=== PATIENT | female | born 1945 | race Caucasian/White ===

== ENCOUNTER → 2016-10-25 | Outpatient (CLI) | payer MEDICARE ==
--- NOTE | 2016-10-27 10:57 | MM ---
Reason for exam: screening (asymptomatic). Last mammogram was performed 1 year ago. History: Patient is postmenopausal. Took estrogen for 5 years beginning at age 44. Took progesterone for 5 years beginning at age 44. Physical Findings: A clinical breast exam by your physician is recommended on an annual basis and results should be correlated with mammographic findings. MG 3D Screening Mammo W/Cad Bilateral CC and MLO view(s) were taken. Prior study comparison: October 21, 2015, bilateral MG screening mammo w CAD. There are scattered fibroglandular densities. No significant changes when compared with prior studies. ASSESSMENT: Benign, BI-RAD 2 RECOMMENDATION: Routine screening mammogram of both breasts in 1 year.
== END | disposition home or self-care (01) ==
LOC: RADMAMWWP 09:21
PROVIDERS: ATTEND Family Medicine
DX: Z12.31 Encounter for screening mammogram for malignant neoplasm of breast (principal); N95.9 Unspecified menopausal and perimenopausal disorder
CPT/HCPCS: 77063; G0202

== ENCOUNTER → 2016-11-02 | Outpatient (CLI) | payer MEDICARE ==
--- NOTE | 2016-11-02 08:49 | US ---
EXAMINATION TYPE: US duplex aorta DATE OF EXAM: 11/02/2016 COMPARISON: CT CLINICAL HISTORY: I71.4 Abd Aneurysm Without Mention Of Rupture. Pt states Mother with history of AAA , pt currently has no symptoms or complaints EXAM MEASUREMENTS: Abdominal Aorta: Proximal: 2.7 x 2.7 cm Mid: 1.9 x 1.9 cm Distal: 2.0 x 1.9 cm Bifurcation: BRENDAN: 1.3 x 1.3 cm ERNESTINE: 1.3 x 0.9 cm No evidence of AAA IMPRESSION: Atheromatous changes. No evidence for aneurysm at this time.
== END | disposition home or self-care (01) ==
LOC: RADUSWWP 08:06
PROVIDERS: ATTEND Family Medicine
DX: I71.4 Abdominal aortic aneurysm, without rupture (principal)
CPT/HCPCS: 93979

== ENCOUNTER → 2017-10-30 | Outpatient (CLI) | payer MEDICARE ==
--- NOTE | 2017-10-31 00:13 | MR ---
EXAMINATION TYPE: MR brain wo con DATE OF EXAM: 10/30/2017 COMPARISON: NONE HISTORY: Rt sided weakness, memory loss Standard multiplanar, multisequence MRI departmental protocol Multiplanar, multisequence images of the brain were acquired. Diffusion weighted imaging was performe d. FINDINGS: There is mild cerebral cortical atrophy. There is no mass effect nor midline shift. There i s no sign of intracranial hemorrhage. Brainstem is intact. Sella turcica appears normal. Corpus callo sum appears normal. IMPRESSION: Mild cerebral atrophy. Otherwise negative MR scan of the brain.
== END | disposition home or self-care (01) ==
LOC: RADMRIMAIN 16:50
PROVIDERS: ATTEND Family Medicine
DX: G31.9 Degenerative disease of nervous system, unspecified (principal)
CPT/HCPCS: 70551

== ENCOUNTER → 2017-11-22 | Outpatient (CLI) | payer MEDICARE ==
--- NOTE | 2017-11-30 09:38 | MM ---
Reason for exam: screening (asymptomatic). Last mammogram was performed 1 year and 1 month ago. History: Patient is postmenopausal. Took estrogen for 5 years beginning at age 44. Took progesterone for 5 years beginning at age 44. Physical Findings: A clinical breast exam by your physician is recommended on an annual basis and results should be correlated with mammographic findings. MG 3D Screening Mammo W/Cad Bilateral CC and MLO view(s) were taken. Prior study comparison: October 25, 2016, bilateral MG 3d screening mammo w/cad. October 21, 2015, bilateral MG screening mammo w CAD. There are scattered fibroglandular densities. Benign appearing bilateral calcifications. No suspicious abnormality. No significant changes when compared with prior studies. ASSESSMENT: Benign, BI-RAD 2 RECOMMENDATION: Routine screening mammogram of both breasts in 1 year.
== END | disposition home or self-care (01) ==
LOC: RADMAMWWP 11:47
PROVIDERS: ATTEND Family Medicine
DX: Z12.31 Encounter for screening mammogram for malignant neoplasm of breast (principal)
CPT/HCPCS: 77063; 77067

== ENCOUNTER → 2018-03-12 | Outpatient (CLI) | payer MEDICARE ==
--- NOTE | 2018-03-12 16:30 | US ---
EXAMINATION TYPE: US bladder DATE OF EXAM: 03/12/2018 COMPARISON: NONE CLINICAL HISTORY: 72-year-old female R35.0 FREQUENCY OF URINATION. UTI TECHNIQUE: Multiple sonographic images of the bladder are obtained. FINDINGS: EXAM MEASUREMENTS: Post Void Residual Volume: 187.6 mL Color Doppler performed to assess ureteral jets. Bilateral Jets seen: Yes Normal Post Void Residual (less than 50ml): No IMPRESSION: Postvoid bladder volume of nearly 190 mL which is compatible with urinary retention.
== END | disposition home or self-care (01) ==
LOC: RADUSWWP 11:31
PROVIDERS: ATTEND Family Medicine
DX: R33.9 Retention of urine, unspecified (principal)
CPT/HCPCS: 76857

== ENCOUNTER → 2018-05-04 | Outpatient (CLI) | payer MEDICARE ==
--- NOTE | 2018-05-04 10:41 | US ---
EXAMINATION TYPE: US kidneys/renal and bladder DATE OF EXAM: 05/04/2018 COMPARISON: Urinary bladder ultrasound dated 03/12/2018 CLINICAL HISTORY: N39.0 Urinary Tract Infection. Frequent urination, recurrent UTI EXAM MEASUREMENTS: Right Kidney: 10.2 x 4.8 x 5.2 cm Left Kidney: 9.8 x 4.9 x 4.2 cm Post Void Residual Volume: 230 mL Right Kidney: no evidence of hydronephrosis Left Kidney: no evidence of hydronephrosis Bladder: appears wnl Bilateral Jets seen: yes Normal Post Void Residual: no There is no evidence for hydronephrosis at this point in time. No nephrolithiasis is seen. No donell s are identified. The urinary bladder is anechoic. Bilateral ureteral jets are seen. IMPRESSION: Redemonstration of an abnormal post void residual (large volume) of 230 mL. Consideration for neuroge ana bladder should be given. No gross evidence of obstruction. No subsequent hydronephrosis to indica te vesiculoureteral reflux.
== END | disposition home or self-care (01) ==
LOC: RADUSWWP 09:56
PROVIDERS: ATTEND Urology
DX: N39.0 Urinary tract infection, site not specified (principal)
CPT/HCPCS: 76770

== ENCOUNTER → 2019-03-26 | Outpatient (CLI) | payer MEDICARE ==
--- NOTE | 2019-03-29 10:56 | MM ---
Reason for exam: screening (asymptomatic). Last mammogram was performed 1 year and 4 months ago. History: Patient is postmenopausal. Took estrogen for 5 years beginning at age 44. Took progesterone for 5 years beginning at age 44. Physical Findings: A clinical breast exam by your physician is recommended on an annual basis and results should be correlated with mammographic findings. MG 3D Screening Mammo W/Cad Bilateral CC and MLO view(s) were taken. Prior study comparison: November 22, 2017, bilateral MG 3d screening mammo w/cad. October 25, 2016, bilateral MG 3d screening mammo w/cad. There are scattered fibroglandular densities. No significant changes when compared with prior studies. ASSESSMENT: Benign, BI-RAD 2 RECOMMENDATION: Routine screening mammogram of both breasts in 1 year.
== END ==
LOC: RADMAMWWP 16:25
PROVIDERS: ATTEND Family Medicine
DX: Z12.31 Encounter for screening mammogram for malignant neoplasm of breast (principal)
CPT/HCPCS: 77063; 77067

== ENCOUNTER → 2021-02-05 | Outpatient (CLI) | payer MEDICARE ==
--- NOTE | 2021-02-08 11:13 | MM ---
Reason for exam: screening (asymptomatic). Last mammogram was performed 1 year and 10 months ago. History: Patient is postmenopausal. Took estrogen for 5 years beginning at age 44. Took progesterone for 5 years beginning at age 44. Physical Findings: A clinical breast exam by your physician is recommended on an annual basis and results should be correlated with mammographic findings. MG 3D Screening Mammo W/Cad Bilateral CC and MLO view(s) were taken. Prior study comparison: March 26, 2019, bilateral MG 3d screening mammo w/cad. November 22, 2017, bilateral MG 3d screening mammo w/cad. There are scattered fibroglandular densities. There are benign appearing round calcifications bilaterally. There is no discrete abnormality. ASSESSMENT: Benign, BI-RAD 2 RECOMMENDATION: Routine screening mammogram of both breasts in 1 year.
== END | disposition home or self-care (01) ==
LOC: RADMAMWWP 09:24
PROVIDERS: ATTEND Family Medicine
DX: Z12.31 Encounter for screening mammogram for malignant neoplasm of breast (principal)
CPT/HCPCS: 77063; 77067

== ENCOUNTER → 2022-08-12 | Outpatient (CLI) | payer MEDICARE ==
--- NOTE | 2022-08-12 14:09 | US ---
EXAMINATION TYPE: US kidneys/renal and bladder DATE OF EXAM: 08/12/2022 COMPARISON: Ultrasound 05/04/2018 CLINICAL HISTORY: R339 RETENTION OF URINE. patient never feels like she voids completely EXAM MEASUREMENTS: Right Kidney: 10.0 x 4.7 x 5.3cm Left Kidney: 9.7 x 3.4 x 5.2cm Post Void Residual Volume: 306 mL Right Kidney: No hydronephrosis or masses seen Left Kidney: No hydronephrosis or masses seen Bladder: probable small diverticulum seen Normal Post Void Residual: no There is no evidence for hydronephrosis at this point in time. No nephrolithiasis is seen. No donell s are identified. Cortical medullary differentiation is maintained. The urinary bladder is anechoic. Significant postvoid residual. Small urinary bladder diverticulum demonstrated. IMPRESSION: 1. Significant postvoid residual of 306 mL consistent with urinary retention. Consideration for neur ogenic bladder should be given. No hydronephrosis to indicate vesicoureteral reflux. 2. Small urinary bladder diverticulum.
== END | disposition home or self-care (01) ==
LOC: RADUSWWP 13:11
PROVIDERS: ATTEND Family Medicine
DX: N32.3 Diverticulum of bladder (principal); R39.198 Other difficulties with micturition; R33.9 Retention of urine, unspecified
CPT/HCPCS: 76770

== ENCOUNTER → 2023-04-10 | Outpatient (CLI) | payer MEDICARE ==
[2023-04-10 09:29] LABS: Appearance,Urine Cloudy (Clear); Bacteria,Urine Rare /hpf; Bilirubin,Urine Negative (Negative); Blood,Urine Negative (Negative); Color,Urine Light Yellow; Glucose,Urine (UA) Negative (Negative); Ketones,Urine Negative (Negative); Leukocyte Esterase,Urine Large (Negative); Mucus,Urine Rare /hpf; Nitrite,Urine Negative (Negative); Protein,Urine Negative (Negative); RBC,Urine 1 /hpf (0-5); Specific Gravity,Urine 1.024 (1.001-1.035); Squamous Epithelial Cell,Urine 15 /hpf (0-4); Urobilinogen,Urine <2.0 mg/dL (<2.0); WBC,Urine 8 /hpf (0-5)
[2023-04-10 15:40] LABS: Basophils # (A) 0.04 X 10*3/uL (0.00-0.10); Basophils % (A) 0.6 %; Eosinophils # (A) 0.06 X 10*3/uL (0.04-0.35); Eosinophils % (A) 0.9 %; HCT 43.9 % (37.2-46.3); Lymphocytes # (A) 1.62 X 10*3/uL (0.90-5.00); Lymphocytes % (A) 25.4 %; MCHC 31.9 g/dL (32.0-37.0); MCV 90.9 FL (80.0-97.0); Mean Platelet Volume 9.4 FL (9.5-12.2); Monocytes # (A) 0.49 X 10*3/uL (0.20-1.00); Monocytes % (A) 7.7 %; NRBC Per 100 WBC 0 X 10*3/uL (0.00-0.01); Neutrophils # (A) 4.14 X 10*3/uL (1.80-7.70); Neutrophils % (A) 65.1 %; Platelet Count 237 X 10*3/uL (140-440); RBC 4.83 X 10*6/uL (4.10-5.20); RDW 14.5 % (11.5-14.5); WBC 6.37 X 10*3/uL (4.50-10.00)
[2023-04-10 15:53] LABS: INR 1.01 sec (0.93-1.11); Prothrombin Time 10.9 sec (9.9-11.9)
[2023-04-11 01:16] LABS: ALT 22 U/L (8-44); AST 28 U/L (13-35); Albumin 4.3 g/dL (3.8-4.9); Albumin/Globulin Ratio 2.15 Ratio (1.60-3.17); Alkaline Phosphatase 75 U/L (41-126); BUN/Creat Ratio 27.62 Ratio (12.00-20.00); Blood Urea Nitrogen 22.1 mg/dL (9.0-27.0); Calcium 9.1 mg/dL (8.7-10.3); Carbon Dioxide 25.5 mmol/L (21.6-31.8); Chloride 105 mmol/L (96-109); Glucose 77 mg/dL (70-110); Potassium 4.8 mmol/L (3.5-5.5); Sodium 141 mmol/L (135-145); Total Bilirubin 0.7 mg/dL (0.3-1.2); Total Protein 6.3 g/dL (6.2-8.2)
== END | disposition home or self-care (01) ==
LOC: LABPAT 08:16
PROVIDERS: ATTEND Obstetrics & Gynecology
DX: Z01.812 Encounter for preprocedural laboratory examination (principal); N81.11 Cystocele, midline
CPT/HCPCS: 80053; 81001; 85025; 85610; 86850; 86900; 86901; 87086

== ENCOUNTER 2023-04-19 05:40 | Day surgery (SDC) | payer MEDICARE ==
--- NOTE | 2023-04-17 23:19 | HP ---
HISTORY AND PHYSICAL DATE OF SURGERY: April 19, 2023. HISTORY OF PRESENT ILLNESS: The patient is a 77-year-old, 3, para 3-0-03, who was sent on referral from Dr. Smith regarding evaluation for pelvic organ prolapse. The patient specifically complains of significant vaginal bulging and pressure with an inability to void completely and occasionally even to start the flow of urination. She was seen for the same in 2018, at which time, she had vaginal hysterectomy with anterior repair scheduled, but was canceled secondary to social circumstances with her . She feels that those symptoms have not only persisted, but have actually increased over the last several years and is now interested in such scheduling surgery again. PAST MEDICAL HISTORY: Significant for history of back problems, headaches, hyperlipidemia, osteoporosis, phlebitis, and shoulder injury. PAST SURGICAL HISTORY: Significant for appendectomy and tonsillectomy. She otherwise has only had a colonoscopy. There is reportedly no history of issues with anesthesia. OBSTETRICAL HISTORY: 3, para 3-0-0-3 with 3 term vaginal deliveries without complications. GYNECOLOGIC HISTORY: Unremarkable with no history of any infections. It is otherwise current confined to as noted in history of present illness with issues regarding prolapse. FAMILY HISTORY: Noncontributory. SOCIAL HISTORY: The patient is and retired. She is a nonsmoker and reports minimal alcohol. She denies any other social concerns. CURRENT MEDICATIONS: Include: 1. Alendronate 70 mg weekly. 2. Aspirin 81 mg daily. 3. Calcium 500 mg plus vitamin D daily. 4. Glucosamine chondroitin daily. 5. Meloxicam 7.5 mg daily. 6. MiraLAX daily. 7. Multivitamin daily. 8. Aurora-3 fatty acids daily. 9. Terbinafine 250 mg daily. ALLERGIES: No known drug allergies. REVIEW OF SYSTEMS: Confined to history of present illness. PHYSICAL EXAMINATION: VITAL SIGNS: Stable. The patient is afebrile. GENERAL: This is a well-developed, well-nourished white female, in no acute distress. HEART: Regular rhythm and rate without murmur. LUNGS: Clear to auscultation bilaterally in all fry. ABDOMEN: Nondistended, has normoactive bowel sounds, soft, nontender, without any palpable masses, hepatosplenomegaly, or hernias. EXTREMITIES: Without any cyanosis, clubbing, or edema and are nontender to palpation bilaterally. PELVIC: Examination demonstrates normal external genitalia and BUS with normal vaginal mucosa and cervix. There is a grade 3 uterine prolapse with a grade 4 cystocele present. The rectum appears to be well supported. ASSESSMENT AND PLAN: Symptomatic uterine prolapse with symptomatic cystocele: We have discussed options for treatment and she has again opted to proceed to surgical repair. We therefore will plan a vaginal hysterectomy with anterior colporrhaphy, possible posterior colporrhaphy. The risks and complications of the procedures have been thoroughly discussed including risk for bleeding, bleeding requiring transfusion, infection, and injury to local structures to specifically include the bowel, bladder, and ureters. We discussed the typical hospital and postoperative courses as well. She has understood all of this and agreed to proceed. The plan was pretreated with Estrace cream 0.5 g intravaginally at bedtime for 2 weeks prior to surgery to aid in the healing process. She currently has some degree of urinary retention, but this is thought to be related to the degree of prolapse. Should that still be present afterwards, further exploration for a neurogenic component could be undertaken with Dr. Smith in the future. MMODL / IJN: [id number] /
[2023-04-19] MEDS ORDERED: HYDROmorphone 0.5 MG/0.5 ML SYRINGE IVP PRN (06:11)
[2023-04-19] MEDS ORDERED: LIDOCAINE 1% (10MG/ML) FOR IV START INTRADERMA PRN (06:11)
[2023-04-19] MEDS ORDERED: DEXAMETHASONE SOD PHOSPHATE 4 MG/ML 1 ML VIAL IV ONE (06:11)
[2023-04-19] MEDS ORDERED: MIDAZOLAM 2 MG/2 ML VIAL IV PRN (06:11)
[2023-04-19] MEDS ORDERED: ONDANSETRON 4 MG/2 ML VIAL IVP ONE (06:11)
[2023-04-19] MEDS: LACTATED RINGERS 1,000 ML IV SCH ×3 (07:00→22:00)
[2023-04-19] MEDS ORDERED: MIDAZOLAM 2 MG/2 ML VIAL IVP ONE (07:12)
[2023-04-19] MEDS ORDERED: LIDOCAINE 1% INJ 10MG/ML (20 ML MDV) ONE (07:25)
[2023-04-19] MEDS ORDERED: PROPOFOL 10 MG/ML 20 ML VIAL IV ONE (07:25)
[2023-04-19] MEDS ORDERED: NEOSTIGMINE 1 MG/ML 10 ML VIAL ONE (07:25)
[2023-04-19] MEDS ORDERED: fentaNYL (PF) 50 MCG/ML 2 ML AMP ONE (07:25)
[2023-04-19] MEDS ORDERED: ePHEDrine 50 MG/ML 1 ML VIAL ONE (07:25)
[2023-04-19] MEDS ORDERED: SUCCINYLCHOLINE CHLORIDE 200 MG/10 ML VIAL IV ONE (07:25)
[2023-04-19] MEDS ORDERED: KETOROLAC 15 MG/ML 1 ML VIAL ONE (07:25)
[2023-04-19] MEDS ORDERED: GLYCOPYRROLATE 0.2 MG/ML 2 ML VIAL ONE (07:25)
[2023-04-19] MEDS ORDERED: ROCURONIUM 10 MG/ML (5 ML VIAL) IV ONE (07:25)
[2023-04-19] MEDS ORDERED: VASOPRESSIN 20 UNIT in SODIUM CHLORIDE 0.9% 60 ML IV ONE (07:47)
[2023-04-19] MEDS ORDERED: BACITRACIN OINT 1 EACH PACKET TOPICAL ONE ×2 (07:48→08:20)
--- NOTE | 2023-04-19 07:52 | P.ANPRN ---
Procedure Note - Anesthesia - Epidural/Spinal Spinal Time Out Performed: Yes Date of Procedure: 04/19/23 Procedure Start Time: 07:05 Procedure Stop Time: 07:10 Location of Patient: PreOp Indication: Acute Post-Operative Pain, Requested by Surgeon Sedation Type: Sedate with meaningful contact maintained Preparation: Sterile Prep Number of Attempts: 1 Position: Sitting Catheter: None Needle Guage: 22 Injectate: Duramorph 300 microgram + 25 microgram fentanyl Blood Aspirated: No Pain Paresthesia on Injection Noted: No Events: Uneventful and Well Tolerated
[2023-04-19] MEDS ORDERED: SIMETHICONE 80 MG CHEWABLE PO PRN (08:40)
[2023-04-19] MEDS ORDERED: KETOROLAC 15 MG/ML 1 ML VIAL IVP PRN (08:40)
[2023-04-19] MEDS ORDERED: ONDANSETRON 4 MG/2 ML VIAL IVP PRN (08:40)
[2023-04-19] MEDS ORDERED: Acetaminophen-Codeine 300-30mg TAB PO PRN ×2 (08:40)
[2023-04-19] MEDS ORDERED: IBUPROFEN 600 MG TAB PO PRN (08:40)
[2023-04-19] MEDS ORDERED: METOCLOPRAMIDE 5 MG/ML 2 ML VIAL IVP PRN (08:40)
[2023-04-19] MEDS ORDERED: diphenhydrAMINE 50 MG/ML 1 ML VIAL IVP PRN (08:40)
--- NOTE | 2023-04-19 08:48 | P.OP ---
Date of Procedure: 04/19/23 Preoperative Diagnosis: #1. Grade 3 uterine prolapse, symptomatic #2. Grade 3+ cystocele, symptomatic Postoperative Diagnosis: Same Procedure(s) Performed: #1. Vaginal hysterectomy #2. Anterior colporrhaphy Anesthesia: NADER Surgeon: Luis Bellamy Desilverizer #1: Jazmin Velazquez Estimated Blood Loss (ml): 50 IV fluids (ml): 400 Urine output (ml): 175 Pathology: other (Uterus) Condition: stable Disposition: PACU Operative Findings: Prolapse findings are as noted in the diagnoses above. Intraoperatively, there was noted to be a roughly 2 cm left anterior high cervical or low uterine subserosal fibroid present which was included with the specimen. The ovaries could not be seen but were felt to be entirely benign to palpation. Description of Procedure: The patient was prepped and draped in usual fashion after general endotracheal anesthesia was administered by the anesthesiologist. A weighted speculum was placed and the bladder drained of approximately 75 mL of clear rod urine. The anterior lip of the cervix was grasped with a double-tooth tenaculum and the cervicovaginal mucosa infused with diluted vasopressin solution. The mucosa was then opened sharply with the scalpel circumferentially around the cervix. A blunt sharp dissection utilized to sweep the mucosa distally at which time the fibroid on the high cervix/lower uterine segment on the left side was noted. The posterior cul-de-sac was identified and incised sharply with the Rivas scissors allowing placement of a stitch of 2-0 Vicryl for later use. The short weighted speculum was replaced the long weighted speculum. Curved Lor- [place] clamps were utilized to take serial bites from the uterosacral ligament upward along the cardinal ligament towards the utero-ovarian ligaments. Each was cut and suture-ligated with a transfixion stitch of 0 Vicryl. After several bites on each side. The uterus was inverted posteriorly and the interior peritoneum identified and opened sharply with the Bovie. This isolated the utero-ovarian ligament on each side which was clamped with a Bruce [place] clamp, cut, and suture-ligated with a transfixion stitch of 0 Vicryl followed by a free tie of 0 Vicryl. Hemostasis appeared to be excellent throughout. The uterus was sent for pathological diagnoses. The ovaries were significantly high in the pelvis and felt to be entirely benign and left in place. The long weighted speculum was replaced the short weighted speculum which was placed and the previously placed stitch of 2-0 Vicryl used to close the parietal peritoneum in a pursestring fashion. The uterosacral ligaments were passed through the contralateral uterosacral ligaments using a stitch of 0 Vicryl on each side in a modified Goodson's culdoplasty. The intervening open va ginal mucosa posteriorly was closed with interrupted vjivzj-wa-iezjt stitches of 0 Vicryl. The small portion open anteriorly was grasped with Allis clamps and the vesicovaginal mucosa infused with diluted vasopressin solution. It was then undermined in the midline and divided with the Metzenbaum scissors to the urethral apex. The mucosa was sharply and bluntly dissected from the underlying tissues. Once adequate dissection had been carried out, serial Marjorie plication stitches were placed from the urethral apex to the hysterectomy incision using 2-0 PDS. Prior to placing any plication stitches, a Rand catheter was placed in the bladder and clear rod urine was noted. Once the Marjorie plication stitches had been completed, the intervening redundant vaginal mucosa was trimmed with Metzenbaum scissors and discarded. The vaginal mucosal incision was then closed with a running locking stitch of 2-0 Vicryl to complete the closure of the incision. The vagina was then packed with a 1 inch iodophor gauze covered with bacitracin ointment. Estimated blood loss for the case was approximately 50 mL. There were no complications. All sponge, instrument, needle counts were correct. The patient tolerated the procedure well and proceeded to the recovery room in stable condition.
[2023-04-19 13:39] LABS: Glucose,Whole Blood 177 mg/dL (70-110)
[2023-04-19] MEDS ORDERED: SENNOSIDES-DOCUSATE SODIUM 1 EACH TAB PO SCH (21:00)
[2023-04-20 06:19] LABS: Basophils % (A) 0 %; Eosinophils # (A) 0.1 k/uL (0-0.7); Eosinophils % (A) 1 %; HCT 34.6 % (34.0-46.0); HGB 11.5 gm/dL (11.4-16.0); Lymphocytes # (A) 1.3 k/uL (1.0-4.8); Lymphocytes % (A) 16 %; MCH 29.8 pg (25.0-35.0); MCHC 33.2 g/dL (31.0-37.0); MCV 89.6 fL (80.0-100.0); Monocytes # (A) 0.5 k/uL (0-1.0); Monocytes % (A) 7 %; Neutrophils # (A) 5.9 k/uL (1.3-7.7); Neutrophils % (A) 75 %; Platelet Count 189 k/uL (150-450); RBC 3.86 m/uL (3.80-5.40); RDW 14.7 % (11.5-15.5); WBC 7.9 k/uL (3.8-10.6)
[2023-04-20] MEDS: LACTATED RINGERS 1,000 ML IV SCH (06:54)
[2023-04-20] MEDS ORDERED: ACETAMINOPHEN TAB 325 MG TAB PO PRN (08:41)
--- NOTE | 2023-04-20 09:09 | P.DS ---
Providers Date of admission: 04/19/2023 Expected date of discharge: 04/20/23 Attending physician: Luis Bellamy Primary care physician: Fadi Sánchez - Discharge Diagnosis(es) (1) S/P vaginal hysterectomy Current Visit: Yes Status: Acute (2) Cystocele Current Visit: Yes Status: Acute (3) Uterine prolapse Current Visit: Yes Status: Acute Hospital Course: 78-year-old female that presented to [facility] on yesterday for scheduled vaginal hysterectomy. Patient had noted uterine prolapse and cystocele. For full details on this patient please see the dictated history and physical. Patient was taken back to the operating suite where procedure was performed without difficulty. For full details on the procedure please see the dictated operative report. Patient's postoperative course has been uneventful. On this postoperative day #1 she is ambulating without difficulty, Rand catheter was removed this morning and we are awaiting spontaneous void and postvoid residual. Patient states she feels well. She is tolerating clear liquids without nausea or vomiting. She states her pain is well-controlled. She denies vaginal bleeding. Patient Condition at Discharge: Good Plan - Discharge Summary Discharge Rx Participant: Yes New Discharge Prescriptions: No Action Estradiol Cream [Estrace Cream 0.01%] 1 gm VAGINAL DAILY Ascorbic Acid [Vitamin C] 500 mg PO DAILY Multivitamin [Multivitamins Adult Gummies] 1 tab PO DAILY Cholecalciferol (Vitamin D3) [Vitamin D3] 1 tab PO DAILY Nome-3/Dha/Epa/Fish Oil [Fish Oil 1,000 mg Softgel] 1 cap PO DAILY Calcium Carbonate/Vitamin D3 [Calcium 500 mg-Vit D3 5 mcg (200 Unit)] 1 tab PO DAILY Aspirin 81 mg PO DAILY Glucosamine Sulfate 1,500 mg PO DAILY Alendronate Sodium 70 mg PO WEEKLY Discharge Medication List Alendronate Sodium 70 mg PO WEEKLY 04/13/23 [History] Ascorbic Acid [Vitamin C] 500 mg PO DAILY 04/13/23 [History] Aspirin 81 mg PO DAILY 04/13/23 [History] Calcium Carbonate/Vitamin D3 [Calcium 500 mg-Vit D3 5 mcg (200 Unit)] 1 tab PO DAILY 04/13/23 [History] Cholecalciferol (Vitamin D3) [Vitamin D3] 1 tab PO DAILY 04/13/23 [History] Estradiol Cream [Estrace Cream 0.01%] 1 gm VAGINAL DAILY 04/13/23 [History] Glucosamine Sulfate 1,500 mg PO DAILY 04/13/23 [History] Multivitamin [Multivitamins Adult Gummies] 1 tab PO DAILY 04/13/23 [History] Nome-3/Dha/Epa/Fish Oil [Fish Oil 1,000 mg Softgel] 1 cap PO DAILY 04/13/23 [History] Follow up Appointment(s)/Referral(s): Luis Bellamy MD [STAFF PHYSICIAN] - 2 Weeks Patient Instructions/Handouts: Vaginal Hysterectomy (DC), Vaginal Hysterectomy (GEN) Activity/Diet/Wound Care/Special Instructions: No tub baths or intercourse until 6 weeks postoperatively. Patient is to call the office and make a routine postoperative appointment for 2 weeks. Patient is encouraged to continue with [id number] ibuprofen 600 mg every 6 hours as needed for pain. Patient states understanding. Patient is to call the office should she have any concerns prior to HER-2 week postoperative check. Discharge Disposition: HOME SELF-CARE
[2023-04-20 09:30] VITALS: TEMP 98.1
--- NOTE | 2023-04-20 15:54 | P.PN ---
Progress Note - Text Progress Note Date: 04/20/23 (8072) Patient seen this morning, sleeping comfortably. POD 1 #1. Vaginal hysterectomy #2. Anterior colporrhaphy POD 1 spinal with duramorph. Pain controlled well overnight, mild pruritis. Reports she was able to ambulate and micturate. No lower ext weakness. Plans on going home today. No mental status changes. Anesthesia will sign off, contact with any questions. Ozzy Swann MD.
[2023-04-20 16:19] VITALS: BP 133/70; PULSE 79; RESP 16
== END 2023-04-20 13:15 | disposition home or self-care (01) ==
LOC: OR 05:40 → 4FBP 08:59 → OR 04-20 13:15
PROVIDERS: ATTEND Obstetrics & Gynecology
DX: N81.11 Cystocele, midline (principal); E78.5 Hyperlipidemia, unspecified; M81.0 Age-related osteoporosis without current pathological fracture; Z90.49 Acquired absence of other specified parts of digestive tract; Z90.89 Acquired absence of other organs; Z79.82 Long term (current) use of aspirin; Z79.1 Long term (current) use of non-steroidal anti-inflammatories (NSAID); Z98.890 Other specified postprocedural states; Z79.899 Other long term (current) drug therapy
CPT/HCPCS: 85025; 58260; 57240; 64999; J2250; J1200; J1100; J2765; J0690; J2405; 88307

== ENCOUNTER → 2024-12-05 | Outpatient (CLI) | payer MEDICARE ==
--- NOTE | 2024-12-06 07:35 | CA ---
Stress Echo Report Ramila Ballard Age: 79 Gender: F : 1945 Exam Date: 12/05/2024 10:51 Exam Location: [facility] Ht (in): 64 Wt (lb): 170 Ordering Physician: Fadi Sánchez MD Referring Physician: Gonzalo VELÁSQUEZ Field Technical Specialist: Miguel Amador RDCS Technologist Procedure CPT: Indication: R06.09 Other forms of dyspnea ICD-9 Codes: Rhythm: Patient History: DIFFICULTY IN BREATHING Cardiac Medications: NONE,,,,, Medications in past 24 hours: Contrast: Definity Stress Results Protocol: Ray Total dose(mL): 2 Exercise Duration (min:sec): 1:[address] Depression (mm): Angina Score: Wells Score: METS: 2.6 Resting HR: 93 Resting BP: 118 / 70 Peak HR: 146 Peak BP: 142 / 55 Max Predicted HR: 140 104 % Max Predicted HR Target HR: 119 Double Product: [id number] Stress Summary: BP Response: Reason for Termination: MAX EXERTION/TARGET HR Cardiac Symptoms: NO SYMPTOMS ECG Analysis Resting ECG: Stress ECG: Arrhythmia: Echo Analysis Resting Echo: Peak Echo Analysis: MEASUREMENTS (Male/Female) Normal Values CONCLUSIONS Reason for test: Shortness of breath on exertion Very limited exercise capacity. Patient could barely walk for 1 minute 40 seconds on the treadmill. No ECG or echocardiographic evidence for ischemia at this low workload level Suboptimal stress level achieved Dr. Greg Davis MD (Electronically Signed) Final Date: 06 December 2024 07:34
== END | disposition home or self-care (01) ==
LOC: RADNMMAIN 10:23
PROVIDERS: ATTEND Family Medicine
DX: R06.09 Other forms of dyspnea (principal)
CPT/HCPCS: 93351; Q9957